=== PATIENT | male | born 1960 | race Two or more races ===

== ENCOUNTER 2020-06-14 23:30 | Inpatient (IN) | payer OTHER ==
[~2020-06-14] VITALS: Ht 180.3 cm; Wt 140.2 kg
[2020-06-14] MEDS ORDERED: methylPREDNISolone SOD SUCC 125 MG/2 ML ONE (23:51)
[2020-06-14] MEDS ORDERED: MAGNESIUM SULFATE PMX 2GM/50ML 50 ML ONE (23:51)
[2020-06-14] MEDS ORDERED: ALBUTEROL/IPRATROPIUM 2.5MG/0.5MG, 3 ML ONE (23:52)
[2020-06-15] MEDS ORDERED: SODIUM CHLORIDE 0.9% 1,000ML IVBOLUS ONE
[2020-06-15] MEDS ORDERED: methylPREDNISolone SOD SUCC 125 MG/2 ML IV ONE
[2020-06-15] MEDS ORDERED: SODIUM CHLORIDE FLUSH 10ML SYR IVF ONE
[2020-06-15] MEDS ORDERED: MAGNESIUM SULFATE PMX 2GM/50ML 50 ML IVPB ONE
[2020-06-15] MEDS: ALBUTEROL/IPRATROPIUM 2.5MG/0.5MG, 3 ML NPPB SCH ×2 (00:06→01:06)
[2020-06-15 00:21] LABS: O2 FLOW ROOM AIR L/min
[2020-06-15 00:22] LABS: BASOPHILS % (AUTO) 1 % (0-1); EOSINOPHILS % (AUTO) 10 % (1-7); LYMPHOCYTES % (AUTO) 23 % (22-44); MEAN CORPUSCULAR HGB CONC 32.8 g/dL (33.2-36.2); MONOCYTES % (AUTO) 9 % (2-9); NEUTROPHILS % (AUTO) 57 % (42-75); PLATELET COUNT 288 x10^3/uL (130-400)
--- NOTE | 2020-06-15 00:22 | NUR ---
SUMMARY NOTE: PT. WAS PLACED ON MONITORS WHEN PLACED INTO ROOM. DR. FELICIANO WAS IN TO EVAL PT. AND DISCUSS POC. PT. WITH SIGNIFICANT RESPITORY DISTRESS WHEN THIS RN ENTERED ROOM. IV ESTABLISHED AND ALL BLOODWORK DRAWN. X-RAY COMPLETED. NEB TX AND MEDS ADMIN. PT. WITH SIGNIFICANT IMPROVEMENT AFTER NEB TX. PT. DOES REPORT NEEDING INTUBATED X 2 IN THE PAST WITH HX OF COPD AND ASTHMA. 4L O2 VIA NC PLACED AFTER NEB TX. PT. ONLY SPEAKING IN 1 WORD SENTENCES ON INITIAL EVAL; NOW ABLE TO SPEAK IN A FEW WORD SENTENCES. ALL SAFETY MEASURES OBSERVED.
[2020-06-15 00:23] LABS: MD NO
[2020-06-15 00:33] LABS: ALANINE AMINOTRANSFERASE 63 U/L (12-78); ALBUMIN 4.1 g/dL (3.4-5.0); ANION GAP 9 mmol/L (5-15); CHLORIDE 110 mmol/L (98-107); CREATININE 1.28 mg/dL (0.7-1.3)
[2020-06-15 00:35] LABS: ACETONE, SERUM Negative (Negative)
[2020-06-15 00:37] LABS: ALKALINE PHOSPHATASE 135 U/L (45-117); BILIRUBIN,TOTAL 0.2 mg/dL (0.2-1.0); TOTAL PROTEIN 7.9 g/dL (6.4-8.2); TROPONIN I < 0.015 ng/mL (0.000-0.045)
[2020-06-15] MEDS ORDERED: ALBUTEROL/IPRATROPIUM 2.5MG/0.5MG, 3 ML ONE (01:02)
--- NOTE | 2020-06-15 01:05 | NUR ---
TURNED O2 VIA NC DOWN TO 2L. WITHIN MINUTES PT. DROPPED TO 84%. 2ND NEB TX BEING ADMIN AT THIS TIME. PT. WOB IS SIGNIFICANTLY IMPROVED AT THIS TIME.
[2020-06-15] MEDS ORDERED: CEFTRIAXONE PMX 1GM/50ML 50 ML ONE (01:12)
--- NOTE | 2020-06-15 01:29 | NUR ---
COVID SWAB COLLECTED AND WALKED TO LAB. PER MARGRET, PHARMACY OK TO RUN MAG SULFATE AND ROCEPHIN TOGETHER.
[2020-06-15] MEDS ORDERED: AZITHROMYCIN 500 MG in SODIUM CHLORIDE 0.9% 250 ML IVPB ONE (01:30)
[2020-06-15] MEDS ORDERED: CEFTRIAXONE PMX 1GM/50ML 50 ML IVPB ONE (01:30)
--- NOTE | 2020-06-15 02:31 | NUR ---
PT. PROVIDED WITH SANDWICH AND WATER AFTER OK FROM DR. FELICIANO.
--- NOTE | 2020-06-15 02:39 | NUR ---
REPORT CALLED TO [facility]. FLOOR READY FOR PATIENT TRANSPORT.
[2020-06-15 03:05] VITALS: BP 161/99
[2020-06-15] MEDS ORDERED: METF500T17 PO (03:17)
[2020-06-15] MEDS ORDERED: DOXA1TAB2 PO (03:25)
[2020-06-15] MEDS ORDERED: LISI10TA19 PO (03:25)
[2020-06-15] MEDS ORDERED: AMLO-210 PO (03:25)
[2020-06-15] MEDS ORDERED: SIMV20TA19 PO (03:25)
[2020-06-15] MEDS ORDERED: CARV6.25 PO (03:25)
[2020-06-15] MEDS ORDERED: DULO30CA2 PO (03:25)
[2020-06-15] MEDS ORDERED: ZOLP10TA PO (03:25)
[2020-06-15] MEDS ORDERED: ONDANSETRON 2MG/ML, 2ML IVPush PRN (04:30)
[2020-06-15] MEDS ORDERED: hydrALAzine 20 MG/ML, 1ML IVPush PRN (04:30)
[2020-06-15] MEDS ORDERED: ACETAMINOPHEN 325 MG TABLET PO PRN (04:30)
[2020-06-15] MEDS ORDERED: GABAPENTIN 300 MG CAPSULE PO PRN (04:30)
[2020-06-15] MEDS ORDERED: MELATONIN 5 MG TABLET PO PRN (04:30)
[2020-06-15] MEDS ORDERED: ZOLPIDEM 10MG TABLET PO PRN (04:30)
[2020-06-15] MEDS: morphine SULFATE 10 MG/ML, 1ML IVPush PRN ×3 (04:44→20:51)
[2020-06-15] MEDS: HEPARIN 5,000 UNITS/ML, 1ML SQ SCH ×3 (04:44→20:51)
[2020-06-15] MEDS ORDERED: ALBUTEROL-IPRATROPIUM MDI INH INH PRN (05:00)
[2020-06-15 05:02] LABS: MICROSCOPIC NOT IND
[2020-06-15 05:16] LABS: HCT (SEDRATE) 36.5 % (39.2-51.8)
[2020-06-15 05:18] LABS: AMPHETAMINE SCREEN, URINE Positive (Negative); BARBITURATE SCREEN, URINE Negative (Negative); BENZODIAZEPINE SCREEN, URINE Negative (Negative); CANNABINOID SCREEN, URINE Negative (Negative); COCAINE SCREEN, URINE Negative (Negative); METHADONE SCREEN, URINE Negative (Negative); OPIATE SCREEN, URINE Negative (Negative)
[2020-06-15 05:48] LABS: RAPID INFLUENZA A Negative (Negative); RAPID INFLUENZA B Negative (Negative)
[2020-06-15 07:09] VITALS: BP 154/99
[2020-06-15] MEDS: INSULIN GLARGINE 100 UNITS/ML, PEN SQ-INSULIN SCH ×2 (08:05→20:52)
[2020-06-15] MEDS: AMLODIPINE 5 MG TABLET PO SCH (08:06)
[2020-06-15] MEDS: DULOXETINE 30 MG CAPSULE.DR PO SCH (08:06)
[2020-06-15] MEDS: CARVEDILOL 6.25 MG TABLET PO SCH ×2 (08:06→20:50)
[2020-06-15] MEDS: DOXAZOSIN 2MG TABLET PO SCH (08:07)
[2020-06-15] MEDS: LISINOPRIL 10 MG TABLET PO SCH (08:07)
[2020-06-15] MEDS ORDERED: DEXAMETHASONE 4 MG/ML, 1ML IVPush SCH (09:00)
[2020-06-15 13:36] VITALS: BP 142/93
[2020-06-15 20:40] VITALS: BP 149/91
[2020-06-15] MEDS: methylPREDNISolone SOD SUCC 125 MG/2 ML IVPush SCH (20:52)
[2020-06-15] MEDS ORDERED: SIMVASTATIN 20 MG TABLET PO SCH (21:00)
[2020-06-16] MEDS ORDERED: CEFTRIAXONE PMX 1GM/50ML 50 ML IV SCH (01:30)
[2020-06-16] MEDS ORDERED: AZITHROMYCIN 500 MG in SODIUM CHLORIDE 0.9% 250 ML IV SCH (02:00)
[2020-06-16 02:06] VITALS: BP 137/87
[2020-06-16 04:33] LABS: BASOPHILS % (AUTO) 1 % (0-1); EOSINOPHILS % (AUTO) 0 % (1-7); LYMPHOCYTES % (AUTO) 5 % (22-44); MEAN CORPUSCULAR HEMOGLOBIN 28.5 pg (27.5-34.5); MEAN CORPUSCULAR HGB CONC 32.4 g/dL (33.2-36.2); MEAN PLATELET VOLUME 9.1 fL (7.4-10.4); MONOCYTES % (AUTO) 3 % (2-9); NEUTROPHILS % (AUTO) 92 % (42-75); PLATELET COUNT 293 x10^3/uL (130-400); RED BLOOD COUNT 4.44 x10^6/uL (4.38-5.82); RED CELL DISTRIBUTION WIDTH 15.2 % (9.4-14.8)
[2020-06-16 04:36] LABS: MD SCAN
[2020-06-16] MEDS: methylPREDNISolone SOD SUCC 125 MG/2 ML IVPush SCH ×2 (04:45→13:11)
[2020-06-16] MEDS: HEPARIN 5,000 UNITS/ML, 1ML SQ SCH ×2 (04:45→13:10)
[2020-06-16 04:46] LABS: ANION GAP 3 mmol/L (5-15); CALCIUM 9.7 mg/dL (8.5-10.1); CHLORIDE 104 mmol/L (98-107); CREATININE 1.07 mg/dL (0.7-1.3)
[2020-06-16 08:00] VITALS: BP 146/81
[2020-06-16] MEDS: DOXAZOSIN 2MG TABLET PO SCH (08:05)
[2020-06-16] MEDS: LISINOPRIL 10 MG TABLET PO SCH (08:05)
[2020-06-16] MEDS: DULOXETINE 30 MG CAPSULE.DR PO SCH (08:05)
[2020-06-16] MEDS: AMLODIPINE 5 MG TABLET PO SCH (08:05)
[2020-06-16] MEDS: CARVEDILOL 6.25 MG TABLET PO SCH (08:05)
[2020-06-16] MEDS: INSULIN GLARGINE 100 UNITS/ML, PEN SQ-INSULIN SCH (08:20)
[2020-06-16] MEDS ORDERED: PRED20TA PO (10:28)
[2020-06-16] MEDS ORDERED: CEFD300C37 PO (10:28)
[2020-06-16] MEDS ORDERED: AZIT500T10 PO (10:28)
[2020-06-16] MEDS: morphine SULFATE 10 MG/ML, 1ML IVPush PRN (10:41)
[2020-06-16 12:21] VITALS: BP 142/78
== END 2020-06-16 15:04 | disposition home or self-care (01) | DRG 193 ==
LOC: ED 06-15 01:41 → EDIP 06-15 02:08 → 3N 06-15 03:10
PROVIDERS: ADMIT Family Medicine; ATTEND Family Medicine
PROC: 5A09357 Assistance with Respiratory Ventilation, Less than 24 Consecutive Hours, Continuous Positive Airway Pressure (ICD-10-PCS; principal; 2020-06-15)
DX: J18.9 Pneumonia, unspecified organism (principal); J96.01 Acute respiratory failure with hypoxia; E87.2 Acidosis; J44.0 Chronic obstructive pulmonary disease with (acute) lower respiratory infection; J44.1 Chronic obstructive pulmonary disease with (acute) exacerbation; J45.42 Moderate persistent asthma with status asthmaticus; Z68.41 Body mass index [BMI] 40.0-44.9, adult; D64.9 Anemia, unspecified; E11.40 Type 2 diabetes mellitus with diabetic neuropathy, unspecified; E11.65 Type 2 diabetes mellitus with hyperglycemia; E66.01 Morbid (severe) obesity due to excess calories; D72.829 Elevated white blood cell count, unspecified; E78.5 Hyperlipidemia, unspecified; Z20.822 Contact with and (suspected) exposure to COVID-19; F17.210 Nicotine dependence, cigarettes, uncomplicated; Z96.649 Presence of unspecified artificial hip joint; T38.0X5A Adverse effect of glucocorticoids and synthetic analogues, initial encounter; G47.33 Obstructive sleep apnea (adult) (pediatric); I10 Essential (primary) hypertension; I48.91 Unspecified atrial fibrillation; N40.0 Benign prostatic hyperplasia without lower urinary tract symptoms; Z79.4 Long term (current) use of insulin; Z82.3 Family history of stroke; Z91.14 Patient's other noncompliance with medication regimen; Z88.0 Allergy status to penicillin
CPT/HCPCS: 36415; 36600; 71045; 80048; 80053; 80307; 80320; 81003; 82010; 82803; 82962; 83036; 83605; 83615; 83880; 84145; 84443; 84484; 85025; 85379; 85651; 87040; 87400; 93005; 94660; 96365; 96366; 96375; 99291; G0378; J0456; J0696; J1100; J1644; G0480; J1815; J2270; J2930; J3475; J7030; J7050; U0003